=== PATIENT | male | born 2005 | race Caucasian/White ===

== ENCOUNTER 2024-01-18 10:58 | Emergency (ER) | payer OTHER ==
[~2024-01-18] VITALS: Ht 170.2 cm; Wt 67.1 kg
[2024-01-18] MEDS ORDERED: LIDO1PAD (11:05)
[2024-01-18] MEDS ORDERED: CYCL-707 (11:05)
[2024-01-18] MEDS ORDERED: KETO10TAB PO (13:15)
[2024-01-18] MEDS: KETOROLAC 30 MG/ML 1ML VIAL IM ONE (13:20)
[2024-01-18] MEDS: ACETAMINOPHEN TAB 650MG DOSE (2X325MG) PO ONE (13:20)
[2024-01-18 13:30] VITALS: BP 112/64; TEMP 98.4; O2SAT 98
== END 2024-01-18 13:40 | disposition home or self-care (01) ==
LOC: M ED 10:58
DX: S29.012A Strain of muscle and tendon of back wall of thorax, initial encounter (principal); S39.012A Strain of muscle, fascia and tendon of lower back, initial encounter; X50.9XXA Other and unspecified overexertion or strenuous movements or postures, initial encounter; Y92.9 Unspecified place or not applicable; Y93.89 Activity, other specified; Y99.9 Unspecified external cause status
CPT/HCPCS: 96372; 99283; J1885